=== PATIENT | female | born 1965 | race Caucasian/White ===

== ENCOUNTER 2024-06-02 14:02 | Emergency (ER) | payer MEDICARE ==
[~2024-06-02] VITALS: Ht 160 cm; Wt 61.4 kg
[~2024-06-02 14:02] MED LIST: MELOXICAM15 MG PO
[2024-06-02] MEDS ORDERED: LISINOPRIL AND1 TA1 PO (14:25)
[2024-06-02] MEDS ORDERED: CYCLOBENZAPRINE10 M1 PO (14:25)
[2024-06-02] MEDS ORDERED: DITROPAN 5MG TAB5 MG PO (14:26)
[2024-06-02] MEDS ORDERED: Orphenadrine 60 MG/2ML AMP IM ONE (14:30)
[2024-06-02] MEDS ORDERED: Ketorolac 30 MG/ML VIAL IM ONE (14:30)
[2024-06-02 15:37] VITALS: BP 145/116
== END 2024-06-02 15:40 | disposition home or self-care (01) ==
LOC: ED 14:02
DX: M54.50 Low back pain, unspecified (principal); M54.6 Pain in thoracic spine; F17.210 Nicotine dependence, cigarettes, uncomplicated; Z86.73 Personal history of transient ischemic attack (TIA), and cerebral infarction without residual deficits; W00.0XXA Fall on same level due to ice and snow, initial encounter; Y92.009 Unspecified place in unspecified non-institutional (private) residence as the place of occurrence of the external cause
CPT/HCPCS: J1885; J2360